=== PATIENT | female | born 1955 | race Caucasian/White ===

== ENCOUNTER 2019-11-17 14:55 | Emergency (ER) | payer MEDICAID ==
[~2019-11-17] VITALS: Ht 154.9 cm; Wt 49.9 kg
[2019-11-17 15:40] VITALS: BP_SYST 100
--- NOTE | 2019-11-17 17:24 | NUR ---
Patient to ER bed h1 to gown for evaluation. Side rails up.
--- NOTE | 2019-11-17 17:27 | NUR ---
ER at bedside examining patient.
--- NOTE | 2019-11-17 17:30 | NUR ---
Pt c/o jaw pain w/o trauma or injury.
[2019-11-17] MEDS ORDERED: KETOROLAC TROMETHAMINE 30 MG VIAL IM ONE (17:45)
[2019-11-17 17:55] VITALS: BP_SYST 112
--- NOTE | 2019-11-17 17:55 | NUR ---
Patient given written and verbal discharge instructions and verbalizes understanding. ER MD discussed with patient the results and treatment provided. Patient in stable condition. ID arm band removed. Rx of naprosyn given. Patient educated on pain management and to follow up with PMD. Pain Scale 2 Opportunity for questions provided and answered. Medication side effect fact sheet provided.
== END 2019-11-17 17:55 | disposition home or self-care (01) ==
LOC: SED 14:55
DX: M26.601 Right temporomandibular joint disorder, unspecified (principal)
CPT/HCPCS: 96372; 99283; J1885

== ENCOUNTER 2019-11-22 18:27 | Emergency (ER) | payer MEDICAID ==
[~2019-11-22] VITALS: Ht 154.9 cm; Wt 49.9 kg
[2019-11-22 18:40] VITALS: BP_SYST 100
--- NOTE | 2019-11-22 18:44 | NUR ---
Patient triaged and placed in waiting room. VSS and patient appears in no acute distress at this time. Accompanied by self, awaiting available bed, and MD notified of need for MSE.
--- NOTE | 2019-11-22 19:27 | NUR ---
Patient to ER bed 4 to gown for evaluation. Side rails up. Report given to Mumtaz LOPEZ.
--- NOTE | 2019-11-22 19:27 | NUR ---
PLACED IN BED 4. HERE FOR ABDOMNAL PAIN,NAUSEA,VOMITING X1 WHICH IS RESOLVED. DENIES FEVER,DIARRHEA,DYSURIA,FREQUENCY. HAS HX.OF DIVERTICULOSIS.
--- NOTE | 2019-11-22 19:45 | NUR ---
URINE DIPSTICK DONE. REPORT NOTED BY KEE.
--- NOTE | 2019-11-22 19:50 | NUR ---
ER-MD CAME BY BEDSIDE TO EVALUATE PT.
--- NOTE | 2019-11-22 20:08 | NUR ---
DISCHARGED STABLE. PRESCRIPTION,VERBAL AND WRITTEN AFTERCARE INSTRUCTIONS GIVEN. VERBALIZED UNDERSTANDING. LEFT AMBULATORY WITH STABLE GAIT.
[2019-11-22 20:25] VITALS: BP_SYST 100
== END 2019-11-22 20:25 | disposition home or self-care (01) ==
LOC: SED 18:27
DX: R10.13 Epigastric pain (principal); R11.2 Nausea with vomiting, unspecified
CPT/HCPCS: 81002; 99283